=== PATIENT | male | born 1985 | race Caucasian/White ===

== ENCOUNTER 2019-11-03 17:09 | Inpatient (IN) | payer OTHER, SELFPAY ==
[~2019-11-03 17:09] MED LIST: Iopamidol-370 76% 500 ML 1 ML ONE
[2019-11-03] MEDS ORDERED: Ondansetron PF 4 MG/2 ML Vial ONE ×2 (17:16→19:39)
[2019-11-03 17:33] LABS: Hemoglobin 15.5 g/dL (14.0-18.0); Mean Corpuscular HGB CONC 31.4 g/dL (32.0-36.0); Mean Corpuscular Hemoglobin 25.7 pg (27.0-31.0); Mean Corpuscular Volume 81.7 fL (78.0-98.0); Mean Platelet Volume 7.2 fL (7.4-10.4); Platelet Count 393 thou/uL (130-400); Red Blood Cell (RBC) Count 6.05 mill/uL (4.70-6.10); White Blood Cell (WBC) Count 20.1 thou/uL (4.8-10.8)
[2019-11-03 17:50] LABS: ALT (SGPT) 23 U/L (8-55); AST (SGOT) 39 U/L (5-34); Albumin 4.8 g/dL (3.5-5.0); Alkaline Phosphatase 142 U/L (40-110); Anion Gap 30 mmol/L (10-20); BUN (Urea Nitrogen) 16 mg/dL (8.9-20.6); Bilirubin, Total 0.4 mg/dL (0.2-1.2); Calc. Creatinine Clearance 0 mL/min (70-130); Calcium 8.5 mg/dL (7.8-10.44); Carbon Dioxide 12 mmol/L (22-29); Chloride 101 mmol/L (98-107); Estimated GFR-MDRD 86; Globulin 2.9 g/dL (2.4-3.5); Glucose 73 mg/dL (70-105); Lipase 55 U/L (8-78); Potassium 4.1 mmol/L (3.5-5.1); Protein, Total 7.7 g/dL (6.0-8.3); Sodium 139 mmol/L (136-145)
[2019-11-03 17:58] LABS: Band 4 % (5-11); Eosinophils 1 % (0-10); Lymphocytes 11 % (21-51); MDiff Complete? YES; Monocytes 2 % (0-10); Neutrophil 81 % (42-75); Platelet Morphology Comment Appears Adequate; RBC Morphology Normal
[2019-11-03 18:40] LABS: Acetaminophen Less than 6.0 mcg/mL (10.0-30.0); Alcohol 234 mg/dL (Less than 10); Salicylate Less than 8.0 mg/dL (15.0-30.0)
--- NOTE | 2019-11-03 19:02 | CT ---
CT ABDOMEN WITH CONTRAST CT PELVIS WITH CONTRAST: DATE: 11/03/2019 HISTORY: 34-year-old male with abdominal pain, nausea, and vomiting COMPARISON: None TECHNIQUE: IV injection of iodinated contrast media: administered. Oral contrast media:Not administered FINDINGS: 2 cm right renal posterolateral mid-lower pole cyst. Otherwise normal kidneys, abdominal aorta, adrenals, pancreas, spleen, appendix, and urinary bladder. Colon is collapsed. Low mural attenuation throughout entire colon from cecum to rectum may or may not represent mural edema. No surrounding fat stranding. No abscess. Suture lines around proximal stomach and in adjacent left upper quadrant small bowel loops. Diffusely low hepatic attenuation represents fatty liver. Mild gallbladder luminal distention, without mural thickening or pericholecystic edema. No small bowel dilation, ascites, pneumoperitoneum, or pleural effusion. IMPRESSION: 1) status post bariatric surgery. 2) hepatic steatosis. 3) right renal cyst. 4) questionable pancolitis.
--- NOTE | 2019-11-03 19:21 | RAD ---
CHEST ONE VIEW: 11/03/19 INDICATIONS: History of weakness, nausea, vomiting, and hypoglycemia. COMPARISON: Prior exam dated 02/28/11. FINDINGS: The visualized lungs are clear. Heart size is normal. No pleural effusion, or pneumothorax is evident . No acute osseous abnormality is evident. IMPRESSION: No acute cardiopulmonary abnormality. POS: BH
[2019-11-03] MEDS ORDERED: cefTRIAXone\\ROCEPHIN 2 GM VIAL ONE (19:39)
[2019-11-03] MEDS ORDERED: Meclizine HCl 25 MG TAB ONE (19:39)
[2019-11-03 19:57] LABS: Bilirubin Negative (Negative); Blood, Urine Negative (Negative); Clarity Clear (Clear); Glucose, Urine (Dipstick) Normal (Negative); Ketone, Urine 60 mg/dL (Negative); Leukocyte Negative Leu/uL (Negative); Nitrite Negative (Negative); Protein, Urine (Dipstick) Negative (Neg-Trace); Specific Gravity, Urine 1.038 (1.002-1.036); Urobilinogen Normal mg/dL (Less than 2)
[2019-11-03 20:08] LABS: Amphetamine Not Detected (NotDetected); Barbiturates Screen Not Detected (NotDetected); Benzodiazepine Screen Not Detected (NotDetected); Cocaine Metabolite Screen Not Detected (NotDetected); Medtox Control Line Valid? VALID (VALID); Medtox Reader # READER 4; Methadone Not Detected (NotDetected); Methamphetamine Not Detected (NotDetected); Opiate Screen Not Detected (NotDetected); Oxycodone Screen Not Detected (NotDetected); Phencyclidine (PCP) Not Detected (NotDetected); THC/Cannabinoid Screen Not Detected (NotDetected); Tricyclic Screen Not Detected (NotDetected)
[2019-11-03] MEDS ORDERED: Vancomycin 1 GM/200 ML BAG ONE (20:37)
[2019-11-03] MEDS ORDERED: Multivitamins, Adult 10 ML, Thiamine HCl 100 MG, Folic Acid 1 MG in Dextrose 5 %-0.45 %... IV SCH (20:45)
[2019-11-03 21:02] LABS: Lactic Acid 7.9 mmol/L (0.5-2.2)
[2019-11-03 21:04] LABS: Bicarbonate (HCO3v) 14.5 mmol/L (22.0-28.0); Calcium, Ionized 0.99 mmol/L (See Comments:); Chloride 106 mmol/L (98-107); Potassium 4.3 mmol/L (3.5-5.1); Sodium 137 mmol/L (138-145); T. Carbon Dioxide 15.3 mmol/L (22.0-28.0); vO2 Saturation-calc 71.2 % (60.0-85.0)
--- NOTE | 2019-11-03 21:32 | CT ---
CT ANGIOGRAM ABDOMEN WITH CONTRAST CT ANGIOGRAM PELVIS WITH CONTRAST: (Computed tomographic angiography, abdominal aorta with contrast material, and imaging postprocessing ) 11/03/2019 HISTORY: 34-year-old male with acute abdominal pain with nausea and vomiting. Suspected mesenteric ischemia. TECHNIQUE: IV injection of iodinated contrast. Arterial bolus chasing technique. Scan acquisition through abdomen and pelvis. 3-D MIP reconstructions. FINDINGS: The abdominal aorta, bilateral renal arteries, celiac artery, hepatic artery, splenic artery, common iliac arteries, external iliac arteries, internal iliac arteries, superior mesenteric artery, and inferior mesenteric artery, are normal, with no atherosclerotic calcification, aneurysm, dissection, or stenosis. IMPRESSION: Normal aorta and its branches.
[2019-11-03] MEDS ORDERED: Promethazine HCl 25 MG/ML VIAL ONE (22:06)
[2019-11-03 22:19] LABS: Lactic Acid 7.1 mmol/L (0.5-2.2)
[2019-11-03] MEDS ORDERED: Labetalol HCl 100 MG/20 ML VIAL SLOW IVP PRN (23:12)
[2019-11-03] MEDS ORDERED: Ondansetron PF 4 MG/2 ML Vial IVP PRN (23:12)
[2019-11-03] MEDS ORDERED: Guaifenesin DM 100-10/5 ML UDCUP PO PRN (23:12)
[2019-11-03] MEDS ORDERED: Acetaminophen 325 MG TAB PO PRN (23:12)
[2019-11-03] MEDS ORDERED: hydrALAZINE 20 MG/ML VIAL SLOW IVP PRN (23:12)
[2019-11-03] MEDS ORDERED: cloNIDine 0.1 MG TAB PO PRN (23:12)
--- NOTE | 2019-11-03 23:13 | PDOC.HHP ---
Hospitalist HPI - History of Present Illness Nausea, vomiting History of Present Illness: Patient is a 34 year old male with PMH T2DM on metformin who presents to ED for weakness, lightheadedness. He developed acute onset weakness, malaise, lighthheaedness this afternoon suddenly as well as diffuse abdominal pain, nausea and vomiting. Patient reports reduced significant food intake since episode began. In ED, labs significant for hyponatremia 135-140 range, metabolic acidosis, lactic acidosis 8.7. Glucose 66. Alcohol level 224. WBC 20. beta hydroxybutyrate positive. CTA aorta normal. regular CT abdomen concerning for pancolitis. Patient given banana bag, vancomycin, IVF, ceftriaxone, admitted for further care. Hospitalist ROS - Review of Systems Constitutional: reports: weakness, malaise, other (headache). denies: fever, chills, sweats Eyes: denies: pain, vision change, conjunctivae inflammation, eyelid inflammation, redness, other ENT: denies: ear pain, ear discharge, nose pain, nose discharge, nose congestion , mouth pain, mouth swelling, throat pain, throat swelling, other Respiratory: denies: cough, dry, shortness of breath, hemoptysis, SOB with excertion, pleuritic pain, sputum, wheezing, other Cardiovascular: denies: chest pain, palpitations, orthopnea, paroxysmal noc. dyspnea, edema, light headedness, other Gastrointestinal: reports: nausea, vomiting, abdominal pain. denies: diarrhea, constipation, melena, hematochezia, other Genitourinary: denies: dysuria, frequency, incontinence, hematuria, retention, other Musculoskeletal: denies: neck pain, shoulder pain, arm pain, back pain, hand pain, leg pain, foot pain, other Skin: denies: rash, lesions, kasey, bruising, other Neurological: denies: weakness, numbness, incoordination, change in speech, confusion, seizures, other All other systems reviewed; all pertinent +/- noted in HPI/Subj - Medication Medications: reviewed, see ED documents Hospitalist History - Past Medical History Other Medical History: T2DM - Past Surgical History Other Surgical History: umbilical hernia repair - Family History Family History: reports: no pertinent history - Social History Smoking Status: Current every day smoker Alcohol: reports: None Drugs: reports: none - Exam General Appearance: NAD, awake alert Eye: PERRL, anicteric sclera ENT: normocephalic atraumatic, no oropharyngeal lesions, moist mucosa Neck: supple, symmetric, no JVD, no thyromegaly, no lymphadenopathy, no carotid bruit Heart: RRR, no murmur, no gallops, no rubs, normal peripheral pulses Respiratory: CTAB, no wheezes, no rales, no ronchi, normal chest expansion, no tachypnea, normal percussion Gastrointestinal: soft, non-distended, normal bowel sounds, no palpable masses, no hepatomegaly, no splenomegaly, no bruit Gastrointestinal - other findings: diffuse mild tenderness, abdomen Extremities: no cyanosis, no clubbing, no edema Skin: normal turgor, no lesions, no rashes Neurological: cranial nerve grossly intact, normal sensation to touch, no weakness, no focal deficits, no new deficit Musculoskeletal: normal tone, normal strength, no muscle wasting Psychiatric: normal affect, normal behavior, A&O x 3 Hospitalist Results - Labs Result Diagrams: 11/04/19 04:31 11/04/19 04:31 Lab results: WBC 20.1 thou/uL (4.8-10.8) H 11/03/19 17:18 Hgb 15.5 g/dL (14.0-18.0) 11/03/19 17:18 Hct 49.4 % (42.0-52.0) 11/03/19 17:18 MCV 81.7 fL (78.0-98.0) 11/03/19 17:18 Plt Count 393 thou/uL (130-400) 11/03/19 17:18 Band Neuts % (Manual) 4 % (5-11) L 11/03/19 17:18 VBG pCO2 28.0 mmHg (40.0-50.0) L 11/03/19 21:04 VBG pO2 39.5 mmHg (35.0-45.0) 11/03/19 21:04 Sodium 139 mmol/L (136-145) 11/03/19 17:18 Potassium 4.1 mmol/L (3.5-5.1) 11/03/19 17:18 Chloride 101 mmol/L (98-107) 11/03/19 17:18 Carbon Dioxide 12 mmol/L (22-29) L 11/03/19 17:18 BUN 16 mg/dL (8.9-20.6) 11/03/19 17:18 Creatinine 1.01 mg/dL (0.7-1.3) 11/03/19 17:18 Glucose 73 mg/dL (70-105) 11/03/19 17:18 Lactic Acid 7.1 mmol/L (0.5-2.2) H* 11/03/19 21:51 Calcium 8.5 mg/dL (7.8-10.44) 11/03/19 17:18 Total Bilirubin 0.4 mg/dL (0.2-1.2) 11/03/19 17:18 AST 39 U/L (5-34) H 11/03/19 17:18 ALT 23 U/L (8-55) 11/03/19 17:18 Alkaline Phosphatase 142 U/L (40-110) H 11/03/19 17:18 Troponin I Less than 0.010 ng/mL (< 0.028) 11/03/19 17:18 Serum Total Protein 7.7 g/dL (6.0-8.3) 11/03/19 17:18 Albumin 4.8 g/dL (3.5-5.0) 11/03/19 17:18 Lipase 55 U/L (8-78) 11/03/19 17:18 Urine Ketones 60 mg/dL (Negative) A 11/03/19 14:30 Urine Blood Negative (Negative) 11/03/19 14:30 Urine Nitrite Negative (Negative) 11/03/19 14:30 Ur Leukocyte Esterase Negative Tong/uL (Negative) 11/03/19 14:30 Additional comment: all labs, imaging, ED documents reviewed Hospitalist H&P A/P - Plan Plan: Patient is a 34 year old male with PMH T2DM on metformin who presents to ED for weakness, lightheadedness. # pancolitis on imaging # sepsis due to pancolitis - continue antibiotics zosyn, follow cultures, order US abdomen to ensure not cholecystitis # alcohol intoxication # metabolic acidosis - appears mixed lactic acidosis and ketoacidosis - I suspect this is mostly ketoacidosis, either starvation or alcoholic ketoacidosis, as patient does not look as ill as labs would suggest. - banana bag, thiamine/folate supplements, hydration and IV dextrose, trend lactic which has already improved. sugar not elevated to suggest DKA. - alcohol cessation counselling before discharge # hyponatremia - in setting of poor PO intake, trenc BMP and continue IVF # t2dm - on PO medication for this, SSI ordered to montior sugars while on dextrose IV fluids GI/DVT ppx full code
[2019-11-03] MEDS ORDERED: Diazepam 5 MG TAB PO PRN (23:14)
[2019-11-03] MEDS ORDERED: Dextrose 5 %-0.45 % NaCl 1,000 ML IV SCH (23:15)
[2019-11-03] MEDS ORDERED: Electrolyte Replacement Protoc 1 EACH EACH FS PRN (23:15)
[2019-11-03] MEDS ORDERED: Diazepam 5 MG TAB PO SCH (23:15)
[2019-11-03 23:36] VITALS: BMI 32.6
[2019-11-03] MEDS ORDERED: Piperacillin/Tazobactam 3.375 GM in Sodium Chloride 0.9% 100 ML IVPB SCH (23:59)
[2019-11-04] MEDS ORDERED: Morphine 2 MG/ML VIAL SLOW IVP PRN (00:14)
[2019-11-04 00:18] LABS: Anion Gap 19 mmol/L (10-20); BUN (Urea Nitrogen) 10 mg/dL (8.9-20.6); Calc. Creatinine Clearance 194 mL/min (70-130); Calcium 7.9 mg/dL (7.8-10.44); Carbon Dioxide 15 mmol/L (22-29); Chloride 102 mmol/L (98-107); Estimated GFR-MDRD Greater than 90; Glucose 112 mg/dL (70-105); Potassium 4.1 mmol/L (3.5-5.1); Sodium 132 mmol/L (136-145)
[2019-11-04] MEDS ORDERED: Dextrose 5% in Water 1,000 ML IV PRN (02:22)
[2019-11-04] MEDS ORDERED: HumaLOG 300 UNITS/3 ML VIAL SC PRN (02:22)
[2019-11-04] MEDS ORDERED: Dextrose 50% Abboject 50 ML SYRINGE SLOW IVP PRN (02:22)
[2019-11-04] MEDS: Dextrose 5 % And 0.9 % NaCl 1,000 ML IV SCH ×3 (02:55→17:29)
[2019-11-04] MEDS: Promethazine HCl 12.5 MG in Sodium Chloride 0.9% 50 ML IVPB PRN ×2 (03:23→14:15)
[2019-11-04] MEDS ORDERED: Diazepam 5 MG TAB PO PRN (04:00)
[2019-11-04 05:09] LABS: Anion Gap 14 mmol/L (10-20); BUN (Urea Nitrogen) 10 mg/dL (8.9-20.6); Calc. Creatinine Clearance 190 mL/min (70-130); Calcium 8.2 mg/dL (7.8-10.44); Carbon Dioxide 19 mmol/L (22-29); Chloride 106 mmol/L (98-107); Estimated GFR-MDRD Greater than 90; Glucose 129 mg/dL (70-105); Magnesium 1.9 mg/dL (1.6-2.6); Potassium 4.1 mmol/L (3.5-5.1); Sodium 135 mmol/L (136-145)
[2019-11-04 05:30] LABS: #Basophils 0.1 thou/uL (0.0-0.2); #Eosinphils 0.2 thou/uL (0.0-0.7); #Lymphocytes 2.3 thou/uL (1.20-3.40); #Monocytes 0.6 thou/uL (0.11-0.59); %Basophils 0.7 % (0.0-1.0); %Eosinophils 2.1 % (0.0-10.0); %Lymphocytes 28.1 % (21.0-51.0); %Monocytes 7.6 % (0.0-10.0); %Neutrophils 61.5 % (42.0-75.0); Hemoglobin 12.5 g/dL (14.0-18.0); Mean Corpuscular HGB CONC 31.8 g/dL (32.0-36.0); Mean Corpuscular Hemoglobin 25.3 pg (27.0-31.0); Mean Corpuscular Volume 79.5 fL (78.0-98.0); Mean Platelet Volume 7.4 fL (7.4-10.4); Platelet Count 275 thou/uL (130-400); RBC Distribution Width 14.7 % (11.5-14.5); Red Blood Cell (RBC) Count 4.94 mill/uL (4.70-6.10); White Blood Cell (WBC) Count 8.1 thou/uL (4.8-10.8)
--- NOTE | 2019-11-04 07:45 | ULT ---
RIGHT UPPER QUADRANT ULTRASOUND: Date: 11/04/2019 INDICATION: History of pancreatitis, rule out gallstones or obstruction. COMPARISON: Prior CT abdomen and pelvis with contrast dated 11/03/2019. FINDINGS: Gallbladder is mildly distended. No visible stones evident. No sonographic Ching's sign reported. No pericholecystic fluid identified. Common bile duct measures 3.5 mm, which is normal. No focal hepatic lesion is evident. Main portal vein appears within normal limits. Pancreas largely obscured by overlying bowel gas. Right kidney measures 11.4 x 5.0 x 5.3 cm. No focal renal lesion or hydronephrosis evident. IMPRESSION: No gallstones demonstrated. POS: BH
[2019-11-04 08:34] LABS: Lactic Acid 0.8 mmol/L (0.5-2.2)
[2019-11-04] MEDS ORDERED: Folic Acid 1 MG TAB PO SCH (09:00)
[2019-11-04] MEDS ORDERED: Thiamine 100 MG TAB PO SCH (09:00)
[2019-11-04] MEDS: Magnesium Oxide 400 MG TAB PO SCH (09:04)
[2019-11-04] MEDS: Piperacillin/Tazobactam 3.375 GM in Sodium Chloride 0.9% 100 ML IVPB SCH ×3 (09:04→21:34)
[2019-11-04] MEDS: Polyethylene Glycol 3350 17 GM Packet PO SCH (09:05)
[2019-11-04] MEDS: Multivitamin W/ Minerals 1 TAB PO SCH (09:05)
[2019-11-04] MEDS: Thiamine 100 MG TAB PO SCH (09:05)
[2019-11-04] MEDS: Folic Acid 1 MG TAB PO SCH (09:05)
--- NOTE | 2019-11-04 10:12 | PDOC.HOSPP ---
- Subjective Encounter Date: 11/04/19 Encounter Time: 11:30 Subjective: pt up in bed no complains - Objective Vital Signs & Weight: Weight Weight 234 lb Result Diagrams: 11/04/19 04:31 11/04/19 15:05 Additional Labs: Accuchecks 11/04/19 05:59 POC Glucose 136 H Hospitalist ROS - Review of Systems Respiratory: denies: cough, dry, shortness of breath, hemoptysis, SOB with excertion, pleuritic pain, sputum, wheezing, other Cardiovascular: denies: chest pain, palpitations, orthopnea, paroxysmal noc. dyspnea, edema, light headedness, other Gastrointestinal: denies: nausea, vomiting, abdominal pain, diarrhea, constipation, melena, hematochezia, other - Medication Medications: Active Medications Generic Name Dose Route Start Last Admin Trade Name Freq PRN Reason Stop Dose Admin Folic Acid 1 mg 11/04/19 09:00 11/04/19 09:05 Folvite PO 1 mg DAILY FABIOLA Administration Promethazine HCl 12.5 mg/ 50.5 mls @ 202 mls/hr 11/03/19 23:12 11/04/19 03:23 Sodium Chloride IVPB 50.5 mls Q6H PRN Administration Nausea/vomiting use second Dextrose/Sodium Chloride 1,000 mls @ 125 mls/hr 11/04/19 00:15 11/04/19 09:05 D5 0.9% Ns IV 1,000 mls .Q8H FABIOLA Administration Piperacillin Sod/Tazobactam 100 mls @ 200 mls/hr 11/04/19 09:00 11/04/19 09: 04 Sod 3.375 gm/ Sodium Chloride IVPB 100 mls 0300,0900,1500,2100 FABIOLA Administration Iron/Minerals/Multivitamins 1 tab 11/04/19 09:00 11/04/19 09:05 Theragran M PO 1 tab DAILY FABIOLA Administration Magnesium Oxide 400 mg 11/04/19 09:00 11/04/19 09:04 Magnesium Oxide PO 400 mg DAILY FABIOLA Administration Ondansetron HCl 4 mg 11/03/19 23:12 11/04/19 09:04 Zofran IVP 4 mg Q6H PRN Administration Nausea/Vomiting use 1st Pantoprazole Sodium 40 mg 11/04/19 09:00 11/04/19 09:05 Protonix PO 40 mg DAILY FABIOLA Administration Polyethylene Glycol 17 gm 11/04/19 09:00 11/04/19 09:05 Miralax PO Not Given DAILY FABIOLA Thiamine HCl 100 mg 11/04/19 09:00 11/04/19 09:05 Thiamine PO 100 mg DAILY FABIOLA Administration - Exam Neck: negative: supple, symmetric, no JVD, no thyromegaly, no lymphadenopathy, no carotid bruit, JVD Heart: negative: RRR, no murmur, no gallops, no rubs, normal peripheral pulses, irregular, diminshed peripheral pulses, murmur present, II/IV, III/IV Respiratory: negative: CTAB, no wheezes, no rales, no ronchi, normal chest expansion, no tachypnea, normal percussion, rales, rhonchi, tachypneic, wheezes Gastrointestinal: soft, normal bowel sounds Gastrointestinal - other findings: mild tenderness to epigastic area Extremities: negative: no cyanosis, no clubbing, no edema, 1+ LE edema, 2+ LE edema, clubbing Hosp A/P (1) Pain in the abdomen Code(s): R10.9 - UNSPECIFIED ABDOMINAL PAIN Status: Acute (2) Alcohol abuse Code(s): F10.10 - ALCOHOL ABUSE, UNCOMPLICATED Status: Acute (3) Metabolic acidosis Code(s): E87.2 - ACIDOSIS Status: Acute (4) Leukocytosis Code(s): D72.829 - ELEVATED WHITE BLOOD CELL COUNT, UNSPECIFIED Status: Acute (5) Sepsis Code(s): A41.9 - SEPSIS, UNSPECIFIED ORGANISM Status: Acute - Plan will continue abx for now. ct indicated ?pancolitis. upon asking the pt he has been drinking significant amount of alcohol (binge) for the past 3-4 days. pt recently finished rehab about a 1.5 months ago. pt has not been eating very much at all for the past 3-4days. He at times will have loose stools but his diarrhea has worsen in the past 3-4 days. his wbc has improved significantly, may switch to oral abx cuca. pt has been advised to refrain from alcohol use. lactic acidosis resolved. will monitor him one more day if he feels well in am possible discharge. will stop bicarb drip.
[2019-11-04 12:42] LABS: SARS-CoV-2 MS2 Positive; SARS-CoV-2 N Gene Negative; SARS-CoV-2 S Gene Negative; SARS-CoV-2 by NAA Not Detected (NotDetected); SARS-CoV-2 orf1ab Negative
[2019-11-04 15:36] LABS: Chloride 108 mmol/L (98-107); Potassium 4.8 mmol/L (3.5-5.1); Sodium 137 mmol/L (136-145)
[2019-11-04 15:37] LABS: Calcium 8.8 mg/dL (7.8-10.44); Glucose 102 mg/dL (70-105)
[2019-11-04 15:39] LABS: Anion Gap 16 mmol/L (10-20); Carbon Dioxide 18 mmol/L (22-29)
[2019-11-04 15:41] LABS: Calc. Creatinine Clearance 173 mL/min (70-130); Estimated GFR-MDRD Greater than 90
[2019-11-04 15:42] LABS: BUN (Urea Nitrogen) 7 mg/dL (8.9-20.6)
[2019-11-04] MEDS ORDERED: Enoxaparin Sodium 40 MG/0.4 ML SYRINGE SC SCH (21:00)
[2019-11-04] MEDS: Acetaminophen 325 MG TAB PO PRN (23:13)
[2019-11-05] MEDS: Piperacillin/Tazobactam 3.375 GM in Sodium Chloride 0.9% 100 ML IVPB SCH ×2 (03:30→08:50)
[2019-11-05 04:25] LABS: #Basophils 0.1 thou/uL (0.0-0.2); #Eosinphils 0.4 thou/uL (0.0-0.7); #Lymphocytes 2.3 thou/uL (1.20-3.40); #Monocytes 0.3 thou/uL (0.11-0.59); #Neutrophils 2.1 thou/uL (1.40-6.50); %Basophils 1.4 % (0.0-1.0); %Eosinophils 7.1 % (0.0-10.0); %Lymphocytes 44.3 % (21.0-51.0); %Monocytes 6.5 % (0.0-10.0); %Neutrophils 40.8 % (42.0-75.0); Hemoglobin 12.4 g/dL (14.0-18.0); Mean Corpuscular HGB CONC 31.9 g/dL (32.0-36.0); Mean Corpuscular Hemoglobin 25.5 pg (27.0-31.0); Mean Platelet Volume 7.7 fL (7.4-10.4); Platelet Count 226 thou/uL (130-400); RBC Distribution Width 14.7 % (11.5-14.5); Red Blood Cell (RBC) Count 4.86 mill/uL (4.70-6.10); White Blood Cell (WBC) Count 5.1 thou/uL (4.8-10.8)
[2019-11-05 04:50] LABS: ALT (SGPT) 17 U/L (8-55); AST (SGOT) 25 U/L (5-34); Albumin 3.7 g/dL (3.5-5.0); Alkaline Phosphatase 90 U/L (40-110); Anion Gap 14 mmol/L (10-20); BUN (Urea Nitrogen) 6 mg/dL (8.9-20.6); Calc. Creatinine Clearance 187 mL/min (70-130); Calcium 8.3 mg/dL (7.8-10.44); Carbon Dioxide 25 mmol/L (22-29); Chloride 107 mmol/L (98-107); Estimated GFR-MDRD Greater than 90; Globulin 2.1 g/dL (2.4-3.5); Glucose 85 mg/dL (70-105); Potassium 3.6 mmol/L (3.5-5.1); Protein, Total 5.8 g/dL (6.0-8.3); Sodium 142 mmol/L (136-145)
[2019-11-05] MEDS ORDERED: Magnesium 2 GM/50 ML 2 GM in Premix Bag 1 BAG IVPB SCH (05:00)
[2019-11-05] MEDS: Folic Acid 1 MG TAB PO SCH (08:50)
[2019-11-05] MEDS: Magnesium Oxide 400 MG TAB PO SCH (08:50)
[2019-11-05] MEDS: Polyethylene Glycol 3350 17 GM Packet PO SCH (08:50)
[2019-11-05] MEDS: Multivitamin W/ Minerals 1 TAB PO SCH (08:50)
[2019-11-05] MEDS: Thiamine 100 MG TAB PO SCH (08:50)
[2019-11-05] MEDS: Acetaminophen 325 MG TAB PO PRN (09:01)
[2019-11-05 10:18] VITALS: TEMP 98.6
[2019-11-05 13:22] VITALS: BP 134/92
--- NOTE | 2019-11-06 00:37 | DIS ---
DATE OF ADMISSION: 11/03/2019 DATE OF DISCHARGE: 11/05/2019 HOSPITAL COURSE: Mr. Cooney is a 34-year-old male, with a medical history of alcohol abuse, type 2 diabetes (on metformin), who presented with generalized weakness, lightheadedness, diffuse abdominal pain, nausea and vomiting after binge drinking for the past 3 to 4 days. He was diagnosed with alcoholic ketoacidosis , volume depletion, and hepatic steatosis. The patient was started on IV fluids and improved promptly. On the second day of hospitalization, the patient's nausea and vomiting resolved and he tolerated p.o. intake. However, on the day of discharge, the patient complained about reduced appetite. The patient was requested to stay for an additional night in order to wait for finalization of studies and further improvement of symptoms. However, he decided to leave A. Of note, the patient received education regarding alcohol abuse and its consequences prior to leaving. PHYSICAL EXAMINATION: VITAL SIGNS: Blood pressure 122/76, pulse 74, respiratory rate 15, oxygen saturation 98% on room air, and temperature 98.6. GENERAL: Lying comfortably in bed, awake and alert. HEENT: Mild diaphoresis. CARDIAC: Regular rate and rhythm. No murmurs, gallops, or rubs. LUNGS: Clear to auscultation bilaterally. No wheezing, rales, or rhonchi. GI: Soft, nontender, and nondistended. Normal bowel sounds. EXTREMITIES: Strength 5/5 throughout upper and lower extremities. Sensation to light touch intact. NEUROLOGIC: Cranial nerves 2 through 12 grossly intact. PSYCHIATRIC: Alert and oriented x3. MEDICATION LIST: The patient was continued on metformin. Per EMR, he was on no additional medications and no new medications were started. Job ID: [id number] [facility]
== END 2019-11-05 12:15 | disposition left against medical advice (07) | DRG 872 ==
LOC: ERS 17:09 → 2NO 20:54
PROVIDERS: ADMIT Internal Medicine; ATTEND Internal Medicine
DX: A41.9 Sepsis, unspecified organism (principal); E87.1 Hypo-osmolality and hyponatremia; K51.00 Ulcerative (chronic) pancolitis without complications; E11.9 Type 2 diabetes mellitus without complications; F17.200 Nicotine dependence, unspecified, uncomplicated; R65.20 Severe sepsis without septic shock; F10.120 Alcohol abuse with intoxication, uncomplicated; Z79.84 Long term (current) use of oral hypoglycemic drugs
CPT/HCPCS: 36415; 36416; 71045; 74174; 74177; 76705; 80048; 80053; 80306; 80307; 81003; 82010; 82330; 82803; 83605; 83630; 83690; 83735; 83930; 84439; 84443; 84484; 85025; 87040; 87086; 87635; 93005; 96361; 96365; 96366; 96367; 96375; 96376; J0696; J1650; J2405; J2543; J2550; J3370; J3411; J3475; J3490; J7042; Q9967; U0003

== ENCOUNTER 2020-08-13 19:22 | Emergency (ER) | payer SELFPAY ==
[2020-08-13 20:25] LABS: #Basophils 0.1 thou/uL (0.0-0.2); #Eosinphils 0.1 thou/uL (0.0-0.7); #Lymphocytes 2.9 thou/uL (1.20-3.40); #Monocytes 0.3 thou/uL (0.11-0.59); %Basophils 1.3 % (0.0-1.0); %Eosinophils 2.2 % (0.0-10.0); %Lymphocytes 45.3 % (21.0-51.0); %Monocytes 3.9 % (0.0-10.0); %Neutrophils 47.2 % (42.0-75.0); Hemoglobin 13.9 g/dL (14.0-18.0); Mean Corpuscular HGB CONC 35.2 g/dL (32.0-36.0); Mean Corpuscular Hemoglobin 27.9 pg (27.0-31.0); Mean Corpuscular Volume 79.2 fL (78.0-98.0); Mean Platelet Volume 7.1 fL (7.4-10.4); Platelet Count 197 thou/uL (130-400); RBC Distribution Width 15.7 % (11.5-14.5); Red Blood Cell (RBC) Count 4.99 mill/uL (4.70-6.10); White Blood Cell (WBC) Count 6.4 thou/uL (4.8-10.8)
[2020-08-13 20:44] LABS: Acetaminophen Less than 6.0 mcg/mL (10.0-30.0); Alcohol 305 mg/dL (Less than 10); Salicylate Less than 8.0 mg/dL (15.0-30.0)
[2020-08-13 20:47] LABS: ALT (SGPT) 28 U/L (8-55); AST (SGOT) 42 U/L (5-34); Albumin 4.5 g/dL (3.5-5.0); Alcohol 320 mg/dL (Less than 10); Alkaline Phosphatase 106 U/L (40-110); Anion Gap 18 mmol/L (10-20); BUN (Urea Nitrogen) 5 mg/dL (8.9-20.6); Bilirubin, Total 0.5 mg/dL (0.2-1.2); Calc. Creatinine Clearance 0 mL/min (70-130); Carbon Dioxide 20 mmol/L (22-29); Chloride 105 mmol/L (98-107); Globulin 2.9 g/dL (2.4-3.5); Glucose 103 mg/dL (70-105); Potassium 3.9 mmol/L (3.5-5.1); Protein, Total 7.4 g/dL (6.0-8.3); Sodium 139 mmol/L (136-145)
[2020-08-13 20:47] LABS: Bilirubin Negative (Negative); Blood, Urine Negative (Negative); Clarity Clear (Clear); Glucose, Urine (Dipstick) Normal (Negative); Ketone, Urine Negative (Negative); Leukocyte Negative Leu/uL (Negative); Nitrite Negative (Negative); Protein, Urine (Dipstick) Negative (Neg-Trace); Specific Gravity, Urine 1.006 (1.002-1.036); Urobilinogen Normal mg/dL (Less than 2)
[2020-08-13 20:57] LABS: Amphetamine Not Detected (NotDetected); Barbiturates Screen Not Detected (NotDetected); Benzodiazepine Screen Not Detected (NotDetected); Cocaine Metabolite Screen Not Detected (NotDetected); Medtox Control Line Valid? VALID (VALID); Medtox Reader # READER 4; Methadone Not Detected (NotDetected); Methamphetamine Not Detected (NotDetected); Opiate Screen Not Detected (NotDetected); Oxycodone Screen Not Detected (NotDetected); Phencyclidine (PCP) Not Detected (NotDetected); THC/Cannabinoid Screen Not Detected (NotDetected); Tricyclic Screen Not Detected (NotDetected)
[2020-08-14] MEDS ORDERED: Ondansetron PF 4 MG/2 ML Vial ONE (00:49)
[2020-08-14] MEDS ORDERED: Acetaminophen 500 MG TAB ONE (02:33)
[2020-08-14] MEDS ORDERED: Lorazepam 2 MG/ML VIAL ONE ×2 (02:50→04:16)
== END 2020-08-14 07:32 | disposition home or self-care (01) ==
LOC: ERS 19:22
DX: F32.9 Major depressive disorder, single episode, unspecified (principal); E11.9 Type 2 diabetes mellitus without complications; Z87.891 Personal history of nicotine dependence
CPT/HCPCS: 36415; 80053; 80306; 80307; 81003; 82550; 84443; 85025; 93005; 96374; 96375; 96376; J2060; J2405

== ENCOUNTER 2022-08-21 10:45 | Inpatient (IN) | payer OTHER, SELFPAY ==
[2022-08-21 12:20] LABS: #Eosinphils 0.1 thou/uL (0.0-0.7); #Monocytes 0.4 thou/uL (0.11-0.59); #Neutrophils 3.2 thou/uL (1.40-6.50); %Basophils 0.4 % (0.0-1.0); %Eosinophils 1.6 % (0.0-10.0); %Lymphocytes 32.9 % (21.0-51.0); %Monocytes 7.6 % (0.0-10.0); %Neutrophils 57.3 % (42.0-75.0); Hemoglobin 12.2 g/dL (14.0-18.0); Mean Corpuscular HGB CONC 31.7 g/dL (32.0-36.0); Mean Corpuscular Hemoglobin 27.7 pg (27.0-31.0); Mean Corpuscular Volume 87.3 fl (78.0-98.0); Mean Platelet Volume 9.7 fL (7.4-10.4); Platelet Count 136 10x3/uL (130-400); RBC Distribution Width 17.3 % (11.5-14.5); Red Blood Cell (RBC) Count 4.41 mill/uL (4.70-6.10); White Blood Cell (WBC) Count 5.7 10x3/uL (4.8-10.8)
[2022-08-21 12:41] LABS: CK (CPK) 58 U/L (30-200); Lipase 402 U/L (8-78)
[2022-08-21 13:00] LABS: Bacteria/HPF None Seen HPF (None Seen); Bilirubin Negative (Negative); Blood, Urine Negative (Negative); CAUTI Indications for Culture Pelvic or flank pain; Clarity Clear (Clear); Glucose, Urine (Dipstick) Normal (Negative); Ketone, Urine Negative (Negative); Leukocyte Negative Leu/uL (Negative); Nitrite Negative (Negative); Protein, Urine (Dipstick) Negative (Neg-Trace); RBC/HPF None Seen HPF (0-3); Specific Gravity, Urine 1.006 (1.002-1.036); Squamous Epithelial None Seen HPF (0-3); Urobilinogen Normal mg/dL (Less than 2); WBC/HPF 0-3 HPF (0-3)
[2022-08-21 13:03] LABS: Urine Culture Reflex No No
[2022-08-21] MEDS ORDERED: Morphine 4 MG/ML VIAL ONE ×2 (13:09→17:03)
[2022-08-21] MEDS ORDERED: Iopamidol-370 76% 500 ML MDV (1 ML CHARGE) ONE (13:28)
[2022-08-21] MEDS ORDERED: Ketorolac Tromethamine 30 MG/ML VIAL ONE (13:50)
[2022-08-21 15:20] LABS: ALT (SGPT) 25 U/L (8-55); AST (SGOT) 27 U/L (5-34); Albumin 3.9 g/dL (3.5-5.0); Alkaline Phosphatase 95 U/L (40-110); Anion Gap 11 mmol/L (10-20); BUN (Urea Nitrogen) 4 mg/dL (8.9-20.6); Bilirubin, Total 0.5 mg/dL (0.2-1.2); Calc. Creatinine Clearance 0 mL/min (70-130); Calcium 9.1 mg/dL (7.8-10.44); Carbon Dioxide 24 mmol/L (22-29); Chloride 105 mmol/L (98-107); Estimated GFR 121; Globulin 2.6 g/dL (2.4-3.5); Glucose 108 mg/dL (70-105); Potassium 4.1 mmol/L (3.5-5.1); Protein, Total 6.5 g/dL (6.0-8.3); Sodium 136 mmol/L (136-145)
[2022-08-21] MEDS ORDERED: Morphine 2 MG/ML VIAL SLOW IVP PRN ×2 (17:33→21:39)
[2022-08-21] MEDS ORDERED: Lorazepam 1 MG TAB PO PRN (17:36)
[2022-08-21] MEDS ORDERED: Lorazepam 2 MG/ML VIAL IM PRN (17:36)
[2022-08-21] MEDS ORDERED: Electrolyte Replacement Protocol 1 EACH FS SCH (17:45)
[2022-08-21 18:37] LABS: #Eosinphils 0.1 thou/uL (0.0-0.7); #Monocytes 0.5 thou/uL (0.11-0.59); #Neutrophils 1.8 thou/uL (1.40-6.50); %Basophils 0.5 % (0.0-1.0); %Eosinophils 2.7 % (0.0-10.0); %Monocytes 10.4 % (0.0-10.0); %Neutrophils 40.2 % (42.0-75.0); Hemoglobin 11.4 g/dL (14.0-18.0); Mean Corpuscular HGB CONC 31.8 g/dL (32.0-36.0); Mean Corpuscular Hemoglobin 27.4 pg (27.0-31.0); Mean Corpuscular Volume 86.3 fl (78.0-98.0); Mean Platelet Volume 9.7 fL (7.4-10.4); Platelet Count 128 10x3/uL (130-400); RBC Distribution Width 17.3 % (11.5-14.5); Red Blood Cell (RBC) Count 4.16 mill/uL (4.70-6.10); White Blood Cell (WBC) Count 4.4 10x3/uL (4.8-10.8)
[2022-08-21 18:57] LABS: Bilirubin, Direct 0.2 mg/dL (0.1-0.3); Phosphorus 3.3 mg/dL (2.3-4.7)
[2022-08-21 19:07] LABS: Lipase 214 U/L (8-78); Magnesium 2.1 mg/dL (1.6-2.6)
[2022-08-21] MEDS: Lorazepam 1 MG TAB PO SCH ×2 (19:54→23:37)
[2022-08-21] MEDS: Gabapentin 300 MG CAP PO SCH (19:54)
[2022-08-21] MEDS: Thiamine 100 MG TAB PO SCH (19:54)
[2022-08-21] MEDS: Pantoprazole 40 MG VIAL IVP SCH (19:58)
[2022-08-21] MEDS: Ondansetron PF 4 MG/2 ML Vial IVP PRN (20:50)
[2022-08-21] MEDS ORDERED: OXcarbazepine 150 MG TAB PO SCH (21:00)
[2022-08-21] MEDS: Lactated Ringer's 1,000 ML IV SCH (21:31)
[2022-08-21] MEDS ORDERED: Morphine 2 MG/ML VIAL SLOW IVP SCH (21:45)
[2022-08-21] MEDS: Heparin 5,000 UNITS/ML VIAL SC SCH (22:05)
[2022-08-21] MEDS: Morphine 4 MG/ML VIAL SLOW IVP PRN (23:37)
[2022-08-22] MEDS: Morphine 4 MG/ML VIAL SLOW IVP PRN ×6 (03:06→22:28)
[2022-08-22] MEDS: Lactated Ringer's 1,000 ML IV SCH ×3 (04:26→20:35)
[2022-08-22] MEDS: Lorazepam 1 MG TAB PO SCH ×3 (05:38→18:16)
[2022-08-22 05:59] LABS: #Eosinphils 0.2 thou/uL (0.0-0.7); #Monocytes 0.5 thou/uL (0.11-0.59); #Neutrophils 1.5 thou/uL (1.40-6.50); %Basophils 0.4 % (0.0-1.0); %Eosinophils 3.3 % (0.0-10.0); %Neutrophils 31.1 % (42.0-75.0); Hemoglobin 12.4 g/dL (14.0-18.0); Mean Corpuscular HGB CONC 31.8 g/dL (32.0-36.0); Mean Corpuscular Hemoglobin 27.5 pg (27.0-31.0); Mean Corpuscular Volume 86.5 fl (78.0-98.0); Platelet Count 144 10x3/uL (130-400); RBC Distribution Width 17.5 % (11.5-14.5); Red Blood Cell (RBC) Count 4.51 mill/uL (4.70-6.10); White Blood Cell (WBC) Count 4.8 10x3/uL (4.8-10.8)
[2022-08-22 06:31] LABS: ALT (SGPT) 27 U/L (8-55); AST (SGOT) 29 U/L (5-34); Albumin 3.9 g/dL (3.5-5.0); Alkaline Phosphatase 99 U/L (40-110); Anion Gap 13 mmol/L (10-20); BUN (Urea Nitrogen) Less than 4 mg/dL (8.9-20.6); Bilirubin, Total 0.5 mg/dL (0.2-1.2); Calc. Creatinine Clearance 184 mL/min (70-130); Calcium 9.1 mg/dL (7.8-10.44); Carbon Dioxide 23 mmol/L (22-29); Chloride 107 mmol/L (98-107); Estimated GFR 121; Globulin 2.7 g/dL (2.4-3.5); Glucose 93 mg/dL (70-105); Lipase 222 U/L (8-78); Potassium 3.4 mmol/L (3.5-5.1); Protein, Total 6.6 g/dL (6.0-8.3); Sodium 140 mmol/L (136-145)
[2022-08-22] MEDS: Ondansetron PF 4 MG/2 ML Vial IVP PRN ×3 (06:51→18:45)
[2022-08-22] MEDS: Gabapentin 300 MG CAP PO SCH ×3 (09:16→20:34)
[2022-08-22] MEDS: Pantoprazole 40 MG VIAL IVP SCH ×2 (09:16→20:35)
[2022-08-22] MEDS: Potassium Chloride 20 MEQ in Premix Bag 1 BAG IVPB SCH ×2 (09:17→11:27)
[2022-08-22] MEDS: Folic Acid 1 MG TAB PO SCH (09:17)
[2022-08-22] MEDS: Heparin 5,000 UNITS/ML VIAL SC SCH ×2 (09:17→20:34)
[2022-08-22] MEDS: DULoxetine 30 MG CAP PO SCH (09:17)
[2022-08-22] MEDS: Multivit, Therapeutic 1 TAB PO SCH (09:17)
[2022-08-22 13:11] LABS: Syphilis Antibody Index 6.85 S/CO (<1.00 Non-Reactive)
[2022-08-22] MEDS: Ketorolac Tromethamine 30 MG/ML VIAL IVP PRN ×2 (13:14→20:33)
[2022-08-22] MEDS ORDERED: OXcarbazepine 150 MG TAB PO SCH (13:15)
[2022-08-22 13:20] LABS: Syphilis Antibody INDETERMINATE (Nonreactive)
[2022-08-22] MEDS ORDERED: Lorazepam 1 MG TAB PO PRN (17:36)
[2022-08-22] MEDS ORDERED: Ketorolac Tromethamine 30 MG/ML VIAL IVP SCH (18:00)
[2022-08-22] MEDS: Thiamine 100 MG TAB PO SCH (18:16)
[2022-08-22] MEDS: OXcarbazepine 150 MG TAB PO SCH (20:35)
[2022-08-23] MEDS: Lorazepam 1 MG TAB PO SCH ×3 (00:04→12:27)
[2022-08-23] MEDS: Ondansetron PF 4 MG/2 ML Vial IVP PRN ×3 (00:29→17:41)
[2022-08-23] MEDS: Morphine 4 MG/ML VIAL SLOW IVP PRN ×4 (02:43→19:57)
[2022-08-23] MEDS: Ketorolac Tromethamine 30 MG/ML VIAL IVP PRN ×3 (05:02→20:01)
[2022-08-23 06:31] LABS: #Eosinphils 0.1 thou/uL (0.0-0.7); #Monocytes 0.4 thou/uL (0.11-0.59); #Neutrophils 0.9 thou/uL (1.40-6.50); %Basophils 0.6 % (0.0-1.0); %Eosinophils 3.7 % (0.0-10.0); %Lymphocytes 55.4 % (21.0-51.0); Hemoglobin 11.1 g/dL (14.0-18.0); Mean Corpuscular HGB CONC 31.5 g/dL (32.0-36.0); Mean Corpuscular Hemoglobin 27.5 pg (27.0-31.0); Mean Corpuscular Volume 87.3 fl (78.0-98.0); Mean Platelet Volume 9.8 fL (7.4-10.4); Platelet Count 139 10x3/uL (130-400); RBC Distribution Width 17.2 % (11.5-14.5); Red Blood Cell (RBC) Count 4.03 mill/uL (4.70-6.10); White Blood Cell (WBC) Count 3.2 10x3/uL (4.8-10.8)
[2022-08-23 06:51] LABS: ALT (SGPT) 22 U/L (8-55); AST (SGOT) 21 U/L (5-34); Albumin 3.5 g/dL (3.5-5.0); Alkaline Phosphatase 82 U/L (40-110); Anion Gap 11 mmol/L (10-20); BUN (Urea Nitrogen) Less than 4 mg/dL (8.9-20.6); Bilirubin, Total 0.4 mg/dL (0.2-1.2); Calc. Creatinine Clearance 189 mL/min (70-130); Calcium 8.8 mg/dL (7.8-10.44); Carbon Dioxide 27 mmol/L (22-29); Chloride 106 mmol/L (98-107); Estimated GFR 122; Globulin 2.3 g/dL (2.4-3.5); Glucose 88 mg/dL (70-105); Lipase 175 U/L (8-78); Potassium 3.8 mmol/L (3.5-5.1); Protein, Total 5.8 g/dL (6.0-8.3); Sodium 140 mmol/L (136-145)
[2022-08-23] MEDS ORDERED: Magnesium 2 GM/50 ML(in water) 2 GM in Premix Bag 1 BAG IVPB SCH (08:00)
[2022-08-23] MEDS: Heparin 5,000 UNITS/ML VIAL SC SCH ×2 (09:31→20:41)
[2022-08-23] MEDS: Multivit, Therapeutic 1 TAB PO SCH (09:31)
[2022-08-23] MEDS: OXcarbazepine 150 MG TAB PO SCH ×2 (09:31→20:39)
[2022-08-23] MEDS: Pantoprazole 40 MG VIAL IVP SCH ×2 (09:31→20:40)
[2022-08-23] MEDS: DULoxetine 30 MG CAP PO SCH (09:32)
[2022-08-23] MEDS: Folic Acid 1 MG TAB PO SCH (09:32)
[2022-08-23] MEDS: Gabapentin 300 MG CAP PO SCH ×3 (09:32→20:39)
[2022-08-23] MEDS: HYDROcodone/Acetaminophen 5/325 mg Tablet PO PRN ×2 (11:53→17:40)
[2022-08-23] MEDS: Lactated Ringer's 1,000 ML IV SCH ×2 (11:57→14:00)
[2022-08-23] MEDS ORDERED: Lorazepam 0.5 MG TAB PO SCH (12:00)
[2022-08-23] MEDS ORDERED: Lorazepam 1 MG TAB PO PRN (17:36)
[2022-08-23] MEDS: Lorazepam 0.5 MG TAB PO SCH (17:40)
[2022-08-23] MEDS: Thiamine 100 MG TAB PO SCH (17:40)
[2022-08-24] MEDS: Lorazepam 0.5 MG TAB PO SCH ×3 (00:01→12:53)
[2022-08-24] MEDS: HYDROcodone/Acetaminophen 5/325 mg Tablet PO PRN ×4 (00:01→20:21)
[2022-08-24] MEDS: Lactated Ringer's 1,000 ML IV SCH ×4 (00:03→20:21)
[2022-08-24] MEDS: Morphine 4 MG/ML VIAL SLOW IVP PRN ×2 (01:04→05:34)
[2022-08-24] MEDS: Ketorolac Tromethamine 30 MG/ML VIAL IVP PRN ×4 (03:08→23:21)
[2022-08-24 07:40] LABS: Hemoglobin 11.9 g/dL (14.0-18.0); Manual Diff?? YES; Mean Corpuscular HGB CONC 31.9 g/dL (32.0-36.0); Mean Corpuscular Hemoglobin 27.4 pg (27.0-31.0); Mean Corpuscular Volume 85.9 fl (78.0-98.0); Mean Platelet Volume 9.7 fL (7.4-10.4); Platelet Count 188 10x3/uL (130-400); RBC Distribution Width 16.7 % (11.5-14.5); Red Blood Cell (RBC) Count 4.34 mill/uL (4.70-6.10); White Blood Cell (WBC) Count 3.7 10x3/uL (4.8-10.8)
[2022-08-24 07:49] LABS: Delete Auto Diff?? YES
[2022-08-24 08:12] LABS: ALT (SGPT) 21 U/L (8-55); AST (SGOT) 23 U/L (5-34); Albumin 3.7 g/dL (3.5-5.0); Alkaline Phosphatase 85 U/L (40-110); Anion Gap 13 mmol/L (10-20); BUN (Urea Nitrogen) Less than 4 mg/dL (8.9-20.6); Bilirubin, Total 0.5 mg/dL (0.2-1.2); Calc. Creatinine Clearance 169 mL/min (70-130); Calcium 8.8 mg/dL (7.8-10.44); Carbon Dioxide 26 mmol/L (22-29); Chloride 106 mmol/L (98-107); Estimated GFR 118; Globulin 2.5 g/dL (2.4-3.5); Glucose 94 mg/dL (70-105); Lipase 130 U/L (8-78); Magnesium 2.5 mg/dL (1.6-2.6); Potassium 3.7 mmol/L (3.5-5.1); Protein, Total 6.2 g/dL (6.0-8.3); Sodium 141 mmol/L (136-145)
[2022-08-24 08:23] LABS: Band 1 % (5-11); Eosinophils 4 % (0-10); Hypochromia SLIGHT = 6-15 cells HPF (0-5); Lymphocytes 52 % (21-51); Macrocytosis SLIGHT = 6-15 cells HPF (0-5); Monocytes 4 % (0-10); Neutrophil 36 % (42-75); Ovalocytes SLIGHT = 2-5 cells HPF (0-1); Platelet Adequacy Comment Platelets Normal; Polychromasia SLIGHT = 2-3 cells HPF (0-2); Reactive Lymphocytes 3 % (0-10); Total Cell Count 100
[2022-08-24] MEDS: Multivit, Therapeutic 1 TAB PO SCH (08:30)
[2022-08-24] MEDS: Ondansetron PF 4 MG/2 ML Vial IVP PRN ×2 (08:30→17:35)
[2022-08-24] MEDS: Heparin 5,000 UNITS/ML VIAL SC SCH ×2 (08:30→20:21)
[2022-08-24] MEDS: Folic Acid 1 MG TAB PO SCH (08:30)
[2022-08-24] MEDS: Gabapentin 300 MG CAP PO SCH ×3 (08:30→20:20)
[2022-08-24] MEDS: DULoxetine 30 MG CAP PO SCH (08:30)
[2022-08-24] MEDS: OXcarbazepine 150 MG TAB PO SCH ×2 (08:31→20:21)
[2022-08-24] MEDS ORDERED: Lorazepam 0.5 MG TAB PO PRN (17:36)
[2022-08-24] MEDS: Thiamine 100 MG TAB PO SCH (17:36)
[2022-08-25 06:06] LABS: #Eosinphils 0.1 thou/uL (0.0-0.7); #Monocytes 0.5 thou/uL (0.11-0.59); %Basophils 0.9 % (0.0-1.0); %Eosinophils 3.4 % (0.0-10.0); %Lymphocytes 53.8 % (21.0-51.0); %Monocytes 14.2 % (0.0-10.0); %Neutrophils 27.7 % (42.0-75.0); Hemoglobin 12.3 g/dL (14.0-18.0); Mean Corpuscular HGB CONC 31.6 g/dL (32.0-36.0); Mean Corpuscular Hemoglobin 27.5 pg (27.0-31.0); Mean Corpuscular Volume 86.8 fl (78.0-98.0); Platelet Count 206 10x3/uL (130-400); RBC Distribution Width 16.5 % (11.5-14.5); Red Blood Cell (RBC) Count 4.48 mill/uL (4.70-6.10); White Blood Cell (WBC) Count 3.5 10x3/uL (4.8-10.8)
[2022-08-25 06:48] LABS: HIV (1/2) Antibody/Antigen Non-Reactive (NonReactive); HIV 1/2 INDEX 0.15 S/CO (<1.00)
[2022-08-25] MEDS: Gabapentin 300 MG CAP PO SCH ×3 (08:13→20:04)
[2022-08-25] MEDS: HYDROcodone/Acetaminophen 5/325 mg Tablet PO PRN ×3 (08:14→21:23)
[2022-08-25] MEDS: DULoxetine 30 MG CAP PO SCH (08:15)
[2022-08-25] MEDS: Folic Acid 1 MG TAB PO SCH (08:15)
[2022-08-25] MEDS: Multivit, Therapeutic 1 TAB PO SCH (08:15)
[2022-08-25] MEDS: Ondansetron PF 4 MG/2 ML Vial IVP PRN ×2 (08:16→14:29)
[2022-08-25] MEDS: Heparin 5,000 UNITS/ML VIAL SC SCH ×2 (08:16→20:06)
[2022-08-25] MEDS: Lactated Ringer's 1,000 ML IV SCH ×3 (08:25→20:07)
[2022-08-25] MEDS: OXcarbazepine 150 MG TAB PO SCH ×2 (09:16→20:05)
[2022-08-25] MEDS: Ketorolac Tromethamine 30 MG/ML VIAL IVP PRN ×2 (09:18→20:06)
[2022-08-25] MEDS ORDERED: Iopamidol-370 76% 500 ML MDV (1 ML CHARGE) ONE (11:28)
[2022-08-25] MEDS ORDERED: Polyethylene Glycol 3350 17 GM Packet PO SCH (14:00)
[2022-08-25] MEDS ORDERED: Bisacodyl 10 MG SUPP PR SCH (14:00)
[2022-08-25] MEDS ORDERED: Metoclopramide HCl 10 MG/2 ML VIAL IVP SCH (15:45)
[2022-08-25] MEDS: Sucralfate 1 GM TAB PO SCH ×2 (16:41→20:05)
[2022-08-25] MEDS: Thiamine 100 MG TAB PO SCH (17:56)
[2022-08-25] MEDS: Metoclopramide HCl 10 MG/2 ML VIAL IVP SCH (21:20)
[2022-08-26] MEDS: HYDROcodone/Acetaminophen 5/325 mg Tablet PO PRN ×2 (05:28→12:13)
[2022-08-26] MEDS: Metoclopramide HCl 10 MG/2 ML VIAL IVP SCH ×2 (05:29→13:25)
[2022-08-26] MEDS: Lactated Ringer's 1,000 ML IV SCH ×2 (05:29→11:40)
[2022-08-26 07:47] VITALS: TEMP 98.7
[2022-08-26] MEDS: DULoxetine 30 MG CAP PO SCH (08:22)
[2022-08-26] MEDS: Sucralfate 1 GM TAB PO SCH ×2 (08:22→11:38)
[2022-08-26] MEDS: Multivit, Therapeutic 1 TAB PO SCH (08:22)
[2022-08-26] MEDS: Folic Acid 1 MG TAB PO SCH (08:22)
[2022-08-26] MEDS: Gabapentin 300 MG CAP PO SCH ×2 (08:22→14:31)
[2022-08-26] MEDS: Ondansetron PF 4 MG/2 ML Vial IVP PRN (08:22)
[2022-08-26] MEDS: Heparin 5,000 UNITS/ML VIAL SC SCH (08:23)
[2022-08-26] MEDS: OXcarbazepine 150 MG TAB PO SCH (08:27)
[2022-08-26 11:56] LABS: ALT (SGPT) 18 U/L (8-55); AST (SGOT) 16 U/L (5-34); Albumin 3.8 g/dL (3.5-5.0); Alkaline Phosphatase 87 U/L (40-110); Anion Gap 10 mmol/L (10-20); BUN (Urea Nitrogen) Less than 4 mg/dL (8.9-20.6); Bilirubin, Total 0.4 mg/dL (0.2-1.2); CRP (Inflammatory) Less than 0.50 mg/dL (= or < 0.5); Calc. Creatinine Clearance 165 mL/min (70-130); Calcium 9.1 mg/dL (7.8-10.44); Carbon Dioxide 27 mmol/L (22-29); Chloride 107 mmol/L (98-107); Estimated GFR 117; Globulin 2.3 g/dL (2.4-3.5); Glucose 103 mg/dL (70-105); Lipase 71 U/L (8-78); Protein, Total 6.1 g/dL (6.0-8.3); Sodium 140 mmol/L (136-145)
[2022-08-26] MEDS ORDERED: Bisacodyl 10 MG SUPP PR SCH (12:15)
[2022-08-26] MEDS ORDERED: Polyethylene Glycol 3350 17 GM Packet PO SCH (12:15)
[2022-08-26 12:49] VITALS: BP 123/81
== END 2022-08-26 15:22 | DRG 440 ==
LOC: ERS 10:45 → EEVIPCON 16:27 → ERHOLD 16:27 → T4-A 19:39
PROVIDERS: ADMIT Internal Medicine Nephrology; ATTEND Internal Medicine
DX: K85.20 Alcohol induced acute pancreatitis without necrosis or infection (principal); K29.80 Duodenitis without bleeding; F41.9 Anxiety disorder, unspecified; F32.A Depression, unspecified; F10.10 Alcohol abuse, uncomplicated; G40.909 Epilepsy, unspecified, not intractable, without status epilepticus; D64.9 Anemia, unspecified; K59.00 Constipation, unspecified; Z98.890 Other specified postprocedural states; Z79.899 Other long term (current) drug therapy
CPT/HCPCS: 36415; 74177; 80053; 81001; 82248; 82550; 83690; 83735; 84100; 85025; 86140; 86593; 86780; 87389; 96374; 96375; 96376; C9113; J1644; J1885; J2270; J2272; J2405; J2765; J3475; J3480; J7120; Q9967